=== PATIENT | female | born 1950 | race Caucasian/White ===

== ENCOUNTER 2017-07-21 13:26 | Inpatient (IN) | payer MEDICARE, OTHER ==
[~2017-07-21] VITALS: Ht 165.1 cm; Wt 82.6 kg
[2017-07-21] MEDS ORDERED: LAMO200T PO (13:37)
[2017-07-21] MEDS ORDERED: ARIP30TA3 PO (13:37)
[2017-07-21] MEDS ORDERED: CARB200T PO (13:37)
--- NOTE | 2017-07-21 13:43 | NUR ---
hands off report given to amish velazco
[2017-07-21 14:49] LABS: *BILIRUBIN,URIN NEGATIVE (NEGATIVE); *BLOOD, URINE NEGATIVE (NEGATIVE); *CLARITY,URINE CLEAR (CLEAR); *COLOR,URINE YELLOW (YELLOW); *KETONES,URINE TRACE (NEGATIVE); *PROTEIN,URINE NEGATIVE (NEGATIVE); *UROBILINOGEN,URINE 0.2 E.U./dl (NORMAL); LEUKOCYTE ESTERASE ,URINE NEGATIVE (NEGATIVE); NITRITE, URINE NEGATIVE (NEGATIVE); PH,URINE 6.5 (5.0-8.0); UGLUCOSE NEGATIVE (NEGATIVE)
[2017-07-21 14:51] LABS: BACTERIA,URINE FEW /HPF (NONE SEEN); RBC,URINE 0-3 /HPF (0-3); SQUAMOUS EPITHELIAL CELL,UR FEW /HPF (NONE SEEN); WBC,URINE 0-3 /HPF (0-3)
--- NOTE | 2017-07-21 15:00 | NUR ---
trnasfered pt to [facility]hu in stable condition. pt remained calm and cooperative the whole er stay.
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
[2017-07-21 15:26] VITALS: BP 149/81
--- NOTE | 2017-07-21 17:34 | NUR ---
Paged Dr. Burnett c/o Soy from [employer] answering service regarding pt's Lamictal and Tegretol orders. Awaiting call back.
--- NOTE | 2017-07-21 17:42 | NUR ---
Rec'd call back from IFEOMA Grady and relayed that pt's Lamictal and Tegretol is for her mood disorder. New order to D/C, read back. Noted and carried out. Confirmed with pharmacy.
[2017-07-21] MEDS ORDERED: MAGNESIUM HYDROXIDE 30 ML LIQUID UDC PO PRN (18:00)
[2017-07-21 20:34] VITALS: BP 121/69
[2017-07-22] MEDS: ZOLPIDEM 5 MG TABLET PO PRN (01:22)
[2017-07-22 07:30] VITALS: BP 112/68
[2017-07-22 08:13] LABS: BASOPHILS % (AUTO) 0.6 % (0.0-2.0); EOSINOPHILS # (AUTO) 0.1 K/uL (0.0-0.7); EOSINOPHILS % (AUTO) 2.2 % (0.0-7.0); HEMATOCRIT 38.3 % (31.2-41.9); LYMPHOCYTES # (AUTO) 1.8 K/uL (20.0-40.0); LYMPHOCYTES % (AUTO) 35.7 % (20.5-51.5); MEAN CORPUSCULAR HEMOGLOBIN 32.6 uug (24.7-32.8); MEAN CORPUSCULAR HGB CONC 34 g/dL (32.3-35.6); MEAN CORPUSCULAR VOLUME 95.5 fL (75.5-95.3); MONOCYTES # (AUTO) 0.5 K/uL (2.0-10.0); MONOCYTES % (AUTO) 10.8 % (0.0-11.0); NEUTROPHILS # (AUTO) 2.6 K/uL (1.8-8.9); NEUTROPHILS % (AUTO) 50.7 % (38.5-71.5); PLATELET COUNT (AUTO) 187 K/uL (179-408); RED BLOOD CELL COUNT(AUTO) 4.01 MIL/uL (3.63-4.92); WHITE BLOOD COUNT (AUTO) 5.1 K/uL (3.8-11.8)
[2017-07-22 08:35] LABS: THYROID STIMULATING HORMONE 5.033 mIU/mL (0.358-3.740)
[2017-07-22 08:57] LABS: BILIRUBIN,TOTAL 0.5 mg/dL (0.2-1.0); MAGNESIUM 2.3 mg/dL (1.8-2.4); PHOSPHOROUS 3.9 mg/dL (2.5-4.9); TOTAL PROTEIN, SERUM 7.8 g/dL (6.4-8.2)
[2017-07-22] MEDS ORDERED: LAMOTRIGINE 200 MG TABLET PO SCH (09:00)
[2017-07-22] MEDS ORDERED: CARBAMAZEPINE 200 MG TABLET PO SCH (09:00)
[2017-07-22] MEDS: CARBAMAZEPINE 200 MG TABLET PO SCH ×2 (09:46→21:35)
[2017-07-22] MEDS: OLANZAPINE ZYDIS 5 MG TAB.RAPDIS PO SCH ×2 (09:46→17:00)
[2017-07-22] MEDS: OMEGA-3 FATTY ACIDS/FISH OIL CAPSULE PO SCH ×2 (12:51→21:34)
[2017-07-22 15:51] VITALS: BP 110/68
[2017-07-22 20:00] VITALS: BP 137/71
[2017-07-22] MEDS: ATORVASTATIN 20 MG TABLET PO SCH (21:34)
--- NOTE | 2017-07-22 22:00 | NUR ---
RECEIVED Pt IN DAY ROOM, A/O X 2, COOPERATIVE WITH ASSESSMENT, COMPLIANT WITH MEDS, Pt HAS DELUSIONS PRESENT, ABLE TO ANSWER BASIC QUESTIONS AND OBEY COMMANDS. Pt IS UNABLE TO HOLD CONVERSATION TOO LONG, HAS DISORGANIZED THOUGHTS AND SPEECH, NO AGGRESSIVE BEHAVIORS NOTED, DENIES PAIN, NO DISTRESS NOTED, DENIES S/I. WILL CONTINUE TO MONITOR Pt CLOSELY. EMPHASIZED SAFETY, BED AT LOWEST POSITION WITH WHEEL LOCKED, SIDE RAILS UP X 2.
[2017-07-23] MEDS: ZOLPIDEM 5 MG TABLET PO PRN (01:06)
--- NOTE | 2017-07-23 01:10 | NUR ---
Pt WOKE UP AND CAME TO NURSE'S STATION COMPLAINING THAT SHE CAN'T SLEEP, REQUESTING FOR SLEEPING PILL. GIVEN AMBIEN PO PRN FOR SLEEP. WILL MONITOR FOR MED EFFECTIVENESS.
[2017-07-23 07:30] VITALS: BP 115/64
[2017-07-23] MEDS: CARBAMAZEPINE 200 MG TABLET PO SCH ×2 (09:00→20:47)
[2017-07-23] MEDS: OMEGA-3 FATTY ACIDS/FISH OIL CAPSULE PO SCH ×2 (09:45→20:47)
[2017-07-23] MEDS: risperiDONE 0.5 MG TABLET PO SCH ×2 (09:46→20:47)
--- NOTE | 2017-07-23 10:37 | NUR ---
Firearms Report: BERTHA submitted Mental Health Report to [facility] on 07/23.
--- NOTE | 2017-07-23 13:45 | NUR ---
GPS: Nursing Notes: Thought Disorder: Patient is awake and responding to her name, impaired judgment, refusing her Tegretol medication, stated "I am not taking this... I told the doctor... It mades me crazy..", throw the pill to the floor, poor impulse control, hyper-caodaism, believes that she is the savior of the patients, loud and angry affect at times, hyperverbal at times, redirected during shift, unable to formulate a viable plan for self care, continue with treatment plan.
--- NOTE | 2017-07-23 15:58 | NUR ---
Initial DC Plan: Patient currently lives at home with her Anthony [[address] [facility].[place] [address]; [phone]]. Patient stated she would like to return there upon discharge. SW will follow up with MD, patient, and patient's to discuss most appropriate discharge plans. SW will form a safe and proper discharge.
[2017-07-23 17:23] VITALS: BP 105/77
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
[2017-07-23 20:11] VITALS: BP 133/79
[2017-07-23] MEDS: ATORVASTATIN 20 MG TABLET PO SCH (20:47)
[2017-07-24] MEDS: ZOLPIDEM 5 MG TABLET PO PRN ×2 (01:23→22:23)
--- NOTE | 2017-07-24 07:00 | NUR ---
Received patient was ambulating in the hallway. no agitation noted. will monitor.
[2017-07-24 07:30] VITALS: BP 140/57
[2017-07-24] MEDS: OMEGA-3 FATTY ACIDS/FISH OIL CAPSULE PO SCH ×2 (09:29→21:39)
[2017-07-24] MEDS: CARBAMAZEPINE 200 MG TABLET PO SCH ×2 (09:29→21:39)
[2017-07-24] MEDS: risperiDONE 0.5 MG TABLET PO SCH ×2 (09:29→21:39)
[2017-07-24 15:58] VITALS: BP 108/64
--- NOTE | 2017-07-24 18:00 | NUR ---
Patient went for CT scan. result is negative. patient with slight agitation but compliant. will monitor.
--- NOTE | 2017-07-24 20:24 | NUR ---
PATIENT IS SEATED IN WHEEL CHAIR BY THE NURSE'S STATION, AAOX2 PLEASANTLY CONFUSED. VERY NEEDY AND HYPER VERBAL. COMPLIANT WITH CARE. NO C/O PAIN OR ACUTE DISTRESS ON ASSESSMENT. WILL CONTINUE TO MONITOR PATIENT
[2017-07-24 20:57] VITALS: BP 131/65
[2017-07-24] MEDS: ATORVASTATIN 20 MG TABLET PO SCH (21:39)
[2017-07-24] MEDS ORDERED: LORAZEPAM 2 MG/1 ML VIAL IM ONE (22:15)
[2017-07-24] MEDS ORDERED: OLANZAPINE 10 MG VIAL IM ONE (22:15)
--- NOTE | 2017-07-24 22:15 | NUR ---
PATIENT IS NOTED DEMANDING. SHE REQUESTED A BUCKET OF HOT WATER FOR HER FOOT, MULTIPLE REDIRECTION GIVEN, YET INEFFECTIVE, NEXT, SHE REQUESTED TO GO IN THE SHOWER TO LET THE HOT WATER RUNNING, MULTIPLE REDIRECTION GIVEN, YET INEFFECTIVE, PATIENT RAN TO THE MAIN DOOR AND STARTED BANGING THE DOOR WITH HER HANDS. PATIENT, THEN WAS ESCORTED BACK TO HER ROOM. MULTIPLE REDIRECTION GIVEN AND WERE EFFECTIVE, PATIENT WAS ABLE TO CALM DOWN. SHE AGREED TO ELEVATE HER FOOT AND STAY IN HER BED. WILL CONTINUE TO MONITOR CLOSELY.
--- NOTE | 2017-07-24 22:25 | NUR ---
PATIENT APPROACHED THE NURSING STATION AND REQUESTED A "SLEEPING PILL". AMBIEN 5MG PO PRN WAS GIVEN FOR INSOMNIA PER PT REQUEST AND NURSE ASSESSMENT.
--- NOTE | 2017-07-25 00:05 | NUR ---
PATIENT NOTED RESTING COMFORTABLE IN HER BED. NO FURTHER DEMANDING, YELLING EPISODES NOTED OR REPORTED AT THIS TIME. WILL CONTINUE TO MONITOR CLOSELY.
--- NOTE | 2017-07-25 03:48 | NUR ---
PATIENT NOTED AWAKE, WALKING THE HALLWAY AND TALKING TO STAFF; HOWEVER, SHE IS CALM. PLEASANT AND COOPERATIVE AT THIS TIME.
--- NOTE | 2017-07-25 06:31 | NUR ---
Patient is awake wandering in the hallways. Slept on and off through the night. Slept 2.5 on this shift. Patient very needy and easily agitated, able to redirect patient. Patient able to follow simple directions, but easily distracted
--- NOTE | 2017-07-25 08:00 | NUR ---
RECEIVED PATIENT IN HER ROOM IN BED ASLEEP BUT EASILY AROUSABLE. SHE IS ABLE TO AMBULATE WITH THE AID OF A FWW WITH ASSISTANCE. SHE IS ABLE TO COMPLY WITH MEDICATION REGIMENT AT THIS TIME. SAFETY IS EMPHASIS. WILL CONTINUE TO MONITOR.
[2017-07-25 08:16] VITALS: BP 130/79
[2017-07-25] MEDS: CARBAMAZEPINE 200 MG TABLET PO SCH ×2 (08:41→20:25)
[2017-07-25] MEDS: risperiDONE 0.5 MG TABLET PO SCH (08:41)
[2017-07-25] MEDS: OMEGA-3 FATTY ACIDS/FISH OIL CAPSULE PO SCH ×2 (08:41→20:24)
[2017-07-25] MEDS: NEOMY/BACITRAC/POLYMI OINT 28.35 GM TUBE TOP SCH (08:42)
--- NOTE | 2017-07-25 17:58 | NUR ---
BLOOD SUGAR CHARTED ON THE WRONG PT. PT HAS NO SIGNS OF HYPER OR HYPO GLYCEMIA. PT IS NOT DIABETIC.
--- NOTE | 2017-07-25 19:45 | NUR ---
RECEIVED PATIENT IN HER ROOM. SHE IS NOTED A/O X 3. SHE IS ABLE TO AMBULATE WITH STEADY GAIT AND ABLE TO MAKE HER NEEDS KNOWN. SHE IS NOTED WITH FLIGHT OF IDEAS, NEEDY, LABILE BX. LOW MOOD. FAIR INSIGHT AND JUDGMENT. DENIES SI, DENIES AH/VH. SAFETY EMPHASIS. WILL CONTINUE TO MONITOR.
[2017-07-25] MEDS: ATORVASTATIN 20 MG TABLET PO SCH (20:24)
[2017-07-25] MEDS: risperiDONE 1 MG TABLET PO SCH (20:25)
[2017-07-25] MEDS ORDERED: risperiDONE 0.5 MG TABLET PO SCH (21:00)
[2017-07-25 21:39] VITALS: BP 117/65
[2017-07-25] MEDS: ZOLPIDEM 5 MG TABLET PO PRN (22:43)
--- NOTE | 2017-07-25 22:46 | NUR ---
PATIENT APPROACHED THE NURSING STATION AND REQUESTED A "SLEEPING PILL". AMBIEN 5MG PO PRN WAS GIVEN FOR INSOMNIA PER PT REQUEST AND NURSE ASSESSMENT.
--- NOTE | 2017-07-25 23:55 | NUR ---
PATIENT NOTED SLEEPING COMFORTABLE IN HER BED. WILL CONTINUE TO MONITOR.
--- NOTE | 2017-07-26 04:20 | NUR ---
PATIENT NOTED AWAKE, WALKING THE HALLWAY AND TALKING TO NURSING STAFF. SHE IS NOTED CALM. CONTINUE WITH FLIGHT OF IDEAS, INCONGRUENT MOOD, BRIGHT AFFECT. SINGING TALKING AND LAUGHING AT TIMES.
[2017-07-26 07:30] VITALS: BP 120/52
[2017-07-26] MEDS: NEOMY/BACITRAC/POLYMI OINT 28.35 GM TUBE TOP SCH (08:18)
[2017-07-26] MEDS: CARBAMAZEPINE 200 MG TABLET PO SCH ×2 (08:19→20:20)
[2017-07-26] MEDS: OMEGA-3 FATTY ACIDS/FISH OIL CAPSULE PO SCH ×2 (08:19→20:20)
[2017-07-26] MEDS: risperiDONE 1 MG TABLET PO SCH ×2 (08:19→20:20)
--- NOTE | 2017-07-26 08:35 | NUR ---
WOUND CONSULT WOUND CARE RECEIVED CONSULT FOR LEFT LOWER EXTREMITY SKIN ABRASION. WOUND CARE WILL DEFER CONSULT AND TREATMENT PLAN TO DPM WHO IS CURRENTLY FOLLOWING PATIENT. THERE ARE NOTED TREATMENT ORDERS IN PLACE. PATIENT WITH ALIVIA AT 22.
[2017-07-26 16:33] VITALS: BP 122/51
[2017-07-26] MEDS: ATORVASTATIN 20 MG TABLET PO SCH (20:20)
[2017-07-26 21:16] VITALS: BP 121/61
[2017-07-26] MEDS: ZOLPIDEM 5 MG TABLET PO PRN (23:02)
--- NOTE | 2017-07-27 06:56 | NUR ---
GPS: REMAIN CALM AND COOPERATIVE WITH MEDICATIONS AND CARE. SLEPT 7 HRS THROUGH THE NIGHT. AMBULATE WITH STEADY GAIT. NO AGITATION NOTED AT THIS TIME.
[2017-07-27 07:30] VITALS: BP 111/62
[2017-07-27] MEDS: CARBAMAZEPINE 200 MG TABLET PO SCH ×2 (08:43→20:25)
[2017-07-27] MEDS: risperiDONE 1 MG TABLET PO SCH ×2 (08:43→20:25)
[2017-07-27] MEDS: OMEGA-3 FATTY ACIDS/FISH OIL CAPSULE PO SCH ×2 (08:43→20:25)
[2017-07-27] MEDS: NEOMY/BACITRAC/POLYMI OINT 28.35 GM TUBE TOP SCH (08:44)
[2017-07-27 17:07] VITALS: BP 163/93
[2017-07-27 20:00] VITALS: BP 126/83
[2017-07-27] MEDS: ATORVASTATIN 20 MG TABLET PO SCH (20:25)
[2017-07-27] MEDS: ZOLPIDEM 5 MG TABLET PO PRN (23:38)
--- NOTE | 2017-07-27 23:39 | NUR ---
GPS: PATIENT C/O INSOMNIA. AMBIEN 5 MG PO GIVEN.
--- NOTE | 2017-07-28 00:39 | NUR ---
GPS: PATIENT SLEEPING EYE CLOSE. PRN EFFECTIVE FOR SLEEP.
--- NOTE | 2017-07-28 06:44 | NUR ---
REMAIN CALM AND COOPERATIVE SLEPT 4:30 HRS THROUGH THE NIGHT. CONTINUE PLAN OF CARE.
[2017-07-28 07:30] VITALS: BP 128/76
[2017-07-28] MEDS: CARBAMAZEPINE 200 MG TABLET PO SCH ×2 (09:07→21:34)
[2017-07-28] MEDS: OMEGA-3 FATTY ACIDS/FISH OIL CAPSULE PO SCH ×2 (09:07→21:12)
[2017-07-28] MEDS: risperiDONE 1 MG TABLET PO SCH ×2 (09:07→21:12)
[2017-07-28] MEDS: NEOMY/BACITRAC/POLYMI OINT 28.35 GM TUBE TOP SCH (09:08)
[2017-07-28 15:31] VITALS: BP 116/55
[2017-07-28 20:18] VITALS: BP 139/74
[2017-07-28] MEDS: ATORVASTATIN 20 MG TABLET PO SCH (21:12)
[2017-07-28] MEDS: ZOLPIDEM 5 MG TABLET PO PRN (23:26)
--- NOTE | 2017-07-28 23:51 | NUR ---
RECEIVED PATIENT IN HER ROOM. SHE IS NOTED A/O X 3. SHE IS ABLE TO AMBULATE WITH STEADY GAIT AND ABLE TO MAKE HER NEEDS KNOWN. SHE IS NOTED WITH FLIGHT OF IDEAS, NEEDY, HYPERVERBAL, HYPER MUSLIM, LABILE BX. FAIR INSIGHT AND JUDGMENT TO THE REASON FOR HER ADMISSION TO [facility]. DENIES SI, DENIES AH/VH. SAFETY EMPHASIS. WILL CONTINUE TO MONITOR
--- NOTE | 2017-07-29 06:46 | NUR ---
PATIENT SLEPT FOR APPROX 5.30HRS THROUGH THE NIGHT. SHE CONTINUE NEEDY, HYPERVERBAL AND HYPERRELIGIOUS; HOWEVER, SHE IS REDIRECTABLE AT THIS TIME.
[2017-07-29 07:30] VITALS: BP 123/57
[2017-07-29] MEDS: OMEGA-3 FATTY ACIDS/FISH OIL CAPSULE PO SCH ×2 (08:26→20:51)
[2017-07-29] MEDS: risperiDONE 1 MG TABLET PO SCH ×2 (08:26→20:53)
[2017-07-29] MEDS: CARBAMAZEPINE 200 MG TABLET PO SCH ×2 (08:26→20:53)
[2017-07-29] MEDS: NEOMY/BACITRAC/POLYMI OINT 28.35 GM TUBE TOP SCH (08:27)
[2017-07-29 20:17] VITALS: BP 112/69
[2017-07-29] MEDS: ATORVASTATIN 20 MG TABLET PO SCH (20:51)
[2017-07-29] MEDS: ZOLPIDEM 5 MG TABLET PO PRN (22:51)
[2017-07-30] MEDS ORDERED: MAG HYDROX/AL HYDROX/SIMETH 30 ML LIQUID UDC PO PRN (07:15)
[2017-07-30 07:30] VITALS: BP 108/65
[2017-07-30] MEDS: OMEGA-3 FATTY ACIDS/FISH OIL CAPSULE PO SCH ×2 (08:30→20:12)
[2017-07-30] MEDS: NEOMY/BACITRAC/POLYMI OINT 28.35 GM TUBE TOP SCH (08:30)
[2017-07-30] MEDS: CARBAMAZEPINE 200 MG TABLET PO SCH ×2 (08:30→20:11)
[2017-07-30] MEDS: risperiDONE 1 MG TABLET PO SCH ×2 (08:30→20:11)
[2017-07-30 15:17] VITALS: BP 144/67
[2017-07-30] MEDS: diphenhydrAMINE 50 MG CAPSULE PO SCH (20:11)
[2017-07-30] MEDS: ATORVASTATIN 20 MG TABLET PO SCH (20:12)
[2017-07-30 20:38] VITALS: BP 108/63
[2017-07-30] MEDS: ACETAMINOPHEN 325 MG TABLET PO PRN (21:20)
[2017-07-31] MEDS: ACETAMINOPHEN 325 MG TABLET PO PRN ×2 (04:57→21:52)
--- NOTE | 2017-07-31 06:53 | NUR ---
RECEIVED Pt IN THE DAY ROOM INTERACTING WITH PEERS. A+Ox2 TO SELF AND PLACE. Pt HAS POOR INSIGHT INTO REASON FOR ADMISSION AND IS IN DENIAL ABOUT MENTAL CONDITION, REMAINS DISORGANIZED AND CONFUSED. Pt STATES SHE IS HERE "BECAUSE THE SPIRITS ARE AFTER ME." Pt IS DELUSIONAL, HYPER-SABIANISM, CARRIES A BIBLE WITH HER AT ALL TIMES AROUND THE UNIT AND PREACHES. Pt IS INTERNALLY PREOCCUPIED, RESPONDS TO INTERNAL STIMULI, TALKS AND SINGS TO HERSELF. Pt NOTED TO HAVE UNPROVOKED EPISODES OF CRYING. Pt IS INTRUSIVE, NEEDY, AND ATTENTION-SEEKING, CONSTANTLY AT THE NURSE'S STATION ASKING FOR SNACKS, TOWELS, PAPER, PENCILS, CUPS AND VARIOUS OTHER ITEMS, BECOMES AGITATED WHENLIMITS ARE SET. Pt ALSO WANDERS INTO THE EMPLOYEE BREAK ROOM FREQUENTLY DESPITE DIRECTION FROM STAFF TO REMAIN IN THE PATIENT AREAS. Pt PARANOID OF MEDICATIONS AND REQUESTS ALL MEDICATIONS BE EXPLAINED AND SHOWED TO HER IN THE WRAPPER BEFORE SHE WILL TAKE THEM. Pt IS SOMATIC AND COMPLAINS THE HER "WHOLE BODY HURTS", TYLENOL 650mg ADMINISTERED x2 WITH GOOD EFFECT. Pt REDIRECTED FREQUENTLY AND MONITORED Q 30 MINUTES. VS STABLE. IN NO ACUTE DISTRESS. SLEPT 4 HOURS.
[2017-07-31] MEDS: LORAZEPAM 1 MG TABLET PO PRN (08:01)
[2017-07-31] MEDS: risperiDONE 1 MG TABLET PO SCH (08:01)
[2017-07-31] MEDS: OMEGA-3 FATTY ACIDS/FISH OIL CAPSULE PO SCH ×2 (08:01→20:42)
[2017-07-31] MEDS: CARBAMAZEPINE 200 MG TABLET PO SCH ×2 (08:01→20:42)
[2017-07-31] MEDS: NEOMY/BACITRAC/POLYMI OINT 28.35 GM TUBE TOP SCH (08:06)
[2017-07-31] MEDS ORDERED: HALOPERIDOL LACTATE 5 MG/1 ML VIAL IM ONE (08:15)
[2017-07-31] MEDS ORDERED: diphenhydrAMINE 50 MG/1 ML VIAL IM ONE (08:15)
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
[2017-07-31 08:30] VITALS: BP 123/72
[2017-07-31 16:31] VITALS: BP 123/69
[2017-07-31] MEDS: diphenhydrAMINE 25 MG CAP PO SCH ×2 (17:00→17:35)
[2017-07-31] MEDS: HALOPERIDOL LACTATE 10 MG/5 ML ORAL SOLUTION UDC PO SCH ×2 (17:00→17:36)
[2017-07-31 20:41] VITALS: BP 126/71
[2017-07-31 20:42] VITALS: BP 126/71
[2017-07-31] MEDS: diphenhydrAMINE 50 MG CAPSULE PO SCH (20:42)
[2017-07-31] MEDS: ATORVASTATIN 20 MG TABLET PO SCH (20:42)
[2017-07-31] MEDS: ZOLPIDEM 5 MG TABLET PO PRN (22:41)
--- NOTE | 2017-08-01 00:04 | NUR ---
RECEIVED Pt IN DAY ROOM, A/O X 2, Pt IS DISORGANIZED AND CONFUSED, POOR INSIGHT, PRESENTS DELUSIONS STATING, "TONIGHT WE ARE GOING TO BREAK DOWN THE [place] OF [place]. YOU WILL BE BLESSED BY GOD." Pt IS NEEDY AND CONSTANTLY ASKING FOR ITEMS FROM NURSING STAFF. Pt WAS GIVEN AMBIEN 5MG PO PRN FOR INSOMNIA. Pt COMPLAINED OF 6/10 BACK PAIN, WAS GIVEN TYLENOL 650 MG PO PRN. MEDS WERE EFFECTIVE. Pt IS NOW SLEEPING. DENIES S/I AND AGREES TO CFS. DENIES PAIN, NO DISTRESS NOTED, IN STABLE CONDITION.
[2017-08-01] MEDS: LORAZEPAM 1 MG TABLET PO PRN (03:05)
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
[2017-08-01 08:00] VITALS: BP 93/49
[2017-08-01] MEDS: OMEGA-3 FATTY ACIDS/FISH OIL CAPSULE PO SCH ×2 (08:14→20:43)
[2017-08-01] MEDS: diphenhydrAMINE 25 MG CAP PO SCH ×2 (08:14→16:10)
[2017-08-01] MEDS: HALOPERIDOL LACTATE 10 MG/5 ML ORAL SOLUTION UDC PO SCH ×3 (08:15→16:10)
[2017-08-01] MEDS: CARBAMAZEPINE 200 MG TABLET PO SCH ×2 (08:15→20:43)
[2017-08-01] MEDS: NEOMY/BACITRAC/POLYMI OINT 28.35 GM TUBE TOP SCH (08:54)
--- NOTE | 2017-08-01 09:19 | NUR ---
Took patient in the bathroom with mild weakness. Helped patient from bathroom to bed. Ate her breakfast and took all her medications. Patient is compliant on all her ADL's. Shower today. 3rd toe abrasion treatment provided as per ordered. Will monitor.
--- NOTE | 2017-08-01 14:30 | NUR ---
Pt seen by Dr. Teague for psychotherapy eval.
[2017-08-01 16:00] VITALS: BP 97/61
--- NOTE | 2017-08-01 16:33 | NUR ---
Patient is compliant with all medications and staff care. No signs of agitation or intruding with other patients. Able to express needs. Wanted to talk to MD regarding going home. Will monitor.
[2017-08-01] MEDS: ATORVASTATIN 20 MG TABLET PO SCH (20:43)
[2017-08-01] MEDS: diphenhydrAMINE 50 MG CAPSULE PO SCH (20:43)
[2017-08-01 21:00] VITALS: BP 126/75
[2017-08-01] MEDS: ZOLPIDEM 5 MG TABLET PO PRN (23:34)
[2017-08-01] MEDS: ACETAMINOPHEN 325 MG TABLET PO PRN (23:35)
--- NOTE | 2017-08-01 23:46 | NUR ---
RECEIVED Pt IN DAY ROOM, A/O X 2, Pt IS DISORGANIZED AND CONFUSED, POOR INSIGHT, LESS INTRUSIVE THAN THE PREVIOUS NIGHT, NO AGGRESSIVE BEHAVIORS NOTED. Pt IS STILL NEEDY, CONTINUOUSLY ASKING NURSING STAFF FOR HELP WITH SIMPLE ACTIVITIES. Pt GAIT WAS NOTED TO BE UNSTEADY AND WAS ASSISTED BY NURSE TO BATHROOM AND THEN TO BED. Pt INITIALLY REFUSED TO GO TO BED SAYING SHE HAS TROUBLE SLEEPING. SHE ALSO COMPLAINED OF PAIN WHICH IS MAKING IT HARDER FOR HER TO WALK AND PERFORM ACTIVITIES. Pt WAS GIVEN AMBIEN 5MG PO PRN FOR SLEEP, ALSO GIVEN TYLENOL 650 MG PO PRN FOR PAIN. Pt IS NOW RESTING IN BED, WILL MONITOR CLOSELY FOR BEHAVIORAL CHANGES, SAFETY, AND MEDICATION EFFECTIVENESS.
[2017-08-02] MEDS: LORAZEPAM 1 MG TABLET PO PRN (02:26)
--- NOTE | 2017-08-02 06:59 | NUR ---
Pt IS STILL SLEEPING. NO DISTRESS NOTED. NO ANXIETY NOTED, NO AGGRESSION NOTED. IN STABLE CONDITION.
[2017-08-02 07:30] VITALS: BP 96/43
[2017-08-02] MEDS: OMEGA-3 FATTY ACIDS/FISH OIL CAPSULE PO SCH ×2 (08:35→20:37)
[2017-08-02] MEDS: CARBAMAZEPINE 200 MG TABLET PO SCH ×2 (08:35→20:37)
[2017-08-02] MEDS: NEOMY/BACITRAC/POLYMI OINT 28.35 GM TUBE TOP SCH (08:36)
[2017-08-02] MEDS: HALOPERIDOL LACTATE 10 MG/5 ML ORAL SOLUTION UDC PO SCH ×2 (09:05→20:40)
[2017-08-02] MEDS: diphenhydrAMINE 25 MG CAP PO SCH (09:08)
[2017-08-02 16:23] VITALS: BP 111/51
--- NOTE | 2017-08-02 20:00 | NUR ---
RECEIVED PATIENT IN THE DAY ROOM, SHE IS NOTED A/O X 2. SHE IS ABLE TO MAKE HER NEEDS KNOWN AND ABLE TO AMBULATE WITH STEADY GAIT. SHE CONTINUE INTRUSIVE, HYPERVERBAL, HYPERRELIGIOUS, WONDERING INTO OTHER PATIENT'S ROOM AND CONVERSATIONS. POOR INSIGHT AND POOR JUDGMENT NOTED. LABILE MOOD, FLIGHT OF IDEAS. DENIES SI/TARI/AH/VH. MEDICATION COMPLIANT AT THIS TIME. SAFETY IS EMPHASIS. WILL CONTINUE TO MONITOR CLOSELY.
[2017-08-02 20:26] VITALS: BP 115/72
[2017-08-02] MEDS: ATORVASTATIN 20 MG TABLET PO SCH (20:37)
[2017-08-02] MEDS: diphenhydrAMINE 50 MG CAPSULE PO SCH (20:37)
--- NOTE | 2017-08-03 | NUR ---
PT NOTED WONDERING IN THE HALLWAY AND ENTERING OTHER PATIENT'S ROOM. MULTIPLE REDIRECTION GIVEN, EFFECTIVE AT THIS TIME. AMBIEN 5MG PO PRN WAS OFFERED; HOWEVER, PT REFUSED AT THIS TIME. WILL CONTINUE TO MONITOR.
--- NOTE | 2017-08-03 04:58 | NUR ---
Pt. noted awake and standing by the nursing station. She stated, "Can I sing for you." Pt was redirected back to her room. Continue needy, attention seeker and intrusive. will continue to monitor.
--- NOTE | 2017-08-03 07:29 | NUR ---
PT SLEPT FOR APPROX 4.0 HRS THROUGH THE NIGHT. REFUSED AMBIEN 5MG PO PRN LAST NIGHT.
[2017-08-03 07:30] VITALS: BP 119/63
[2017-08-03] MEDS: CARBAMAZEPINE 200 MG TABLET PO SCH ×2 (08:04→20:12)
[2017-08-03] MEDS: diphenhydrAMINE 25 MG CAP PO SCH (08:04)
[2017-08-03] MEDS: OMEGA-3 FATTY ACIDS/FISH OIL CAPSULE PO SCH ×2 (08:04→20:12)
[2017-08-03] MEDS: HALOPERIDOL LACTATE 10 MG/5 ML ORAL SOLUTION UDC PO SCH ×2 (08:04→20:11)
[2017-08-03] MEDS: NEOMY/BACITRAC/POLYMI OINT 28.35 GM TUBE TOP SCH (08:05)
--- NOTE | 2017-08-03 15:07 | NUR ---
Gps/Color Blender- Patient demanding to have her clothes be wash right away , claimed she does not want to wear hospital gown after he shower, informed will give back her clothes when washed.
--- NOTE | 2017-08-03 15:30 | NUR ---
Gps/Pool Table Mechanic- Difficulty redirecting patient, kept hovering at the Nurses station , demanding to have the portable phone, informed she can use the phone by the hallway, refused, wants to used the portable being charged at this time, argumentative with the staff, uncooperative.Continue to monitor behavior.
[2017-08-03] MEDS: LORAZEPAM 1 MG TABLET PO PRN (15:55)
[2017-08-03 16:11] VITALS: BP 124/71
--- NOTE | 2017-08-03 20:00 | NUR ---
RECEIVED PATIENT IN HER ROOM, SHE WAS TALKING WITH HER IN THE PHONE. SHE IS NOTED A/O X2 (PERSON AND PLACE). PT NOTED WITH LOW MOOD, LABILE, HYPERVERBAL, FLIGHT OF IDEAS, HYPERRELIGIOUS, NEEDY AND ATTENTION SEEKER. SOMEWHAT REDIRECTABLE. FAIR INSIGHT AND JUDGMENT TO THE REASON FOR HER ADMISSION. SHE DENIES SI/HI/VH/AV. SHE IS ABLE TO CFS. SHE IS ABLE TO COMPLY WITH MEDICATION REGIMENT AN PLAN OF CARE.
[2017-08-03] MEDS: ATORVASTATIN 20 MG TABLET PO SCH (20:11)
[2017-08-03] MEDS: diphenhydrAMINE 50 MG CAPSULE PO SCH (20:12)
[2017-08-03 20:34] VITALS: BP 133/59
--- NOTE | 2017-08-03 20:54 | NUR ---
PATIENT ABLE TO AMBULATE WITH STEADY GAIT AND ABLE TO MAKE HER NEEDS KNOWN. SAFETY WAS EMPHASIS.
--- NOTE | 2017-08-04 02:10 | NUR ---
PATIENT WOKE UP AND CAME TO THE NURSING STATION REQUESTING A "SLEEPING PILL." SHE WAS ADVISED THAT IT WAS TOO LATE FOR A SLEEPING PILL. SHE THEN BECAME ANGRY AND KICKED AN EMPTY SARAH CHAIR THAT WAS PLACED IN THE HALLWAY. MULTIPLE REDIRECTION GIVEN; SHE THEN, WENT BACK TO HER BED AND FALL ASLEEP. WILL CONTINUE TO MONITOR
--- NOTE | 2017-08-04 06:21 | NUR ---
PATIENT SLEEP FOR APPROX 7.30HRS THROUGH THE NIGHT. CONTINUE EASILY IRRITABLE AND DIFFICULTY TO BE REDIRECTED.
[2017-08-04 07:30] VITALS: BP 132/72
[2017-08-04] MEDS: OMEGA-3 FATTY ACIDS/FISH OIL CAPSULE PO SCH ×2 (08:25→21:01)
[2017-08-04] MEDS: diphenhydrAMINE 25 MG CAP PO SCH (08:25)
[2017-08-04] MEDS: HALOPERIDOL LACTATE 10 MG/5 ML ORAL SOLUTION UDC PO SCH ×2 (08:25→21:00)
[2017-08-04] MEDS: CARBAMAZEPINE 200 MG TABLET PO SCH ×2 (08:25→21:01)
[2017-08-04] MEDS: NEOMY/BACITRAC/POLYMI OINT 28.35 GM TUBE TOP SCH (08:26)
--- NOTE | 2017-08-04 14:44 | NUR ---
Gps/Director Pharmacy Services- Attending her group therapy, interacting fairly well with her peers, patient was singing , appeared to be in good spirit.
[2017-08-04 15:50] VITALS: BP 113/57
--- NOTE | 2017-08-04 19:50 | NUR ---
RECEIVED PATIENT IN THE DAY ROOM. SHE IS NOTED A/O X2 (PERSON AND PLACE). SHE IS ABLE TO AMBULATED WITH STEADY GAIT AND ABLE TO MAKE HER NEEDS KNOWN. NOTED WITH LABILE MOOD, HYPERVERBAL, FLIGHT OF IDEAS, HYPERRELIGIOUS, INTRUSIVE, NEEDY AND ATTENTION SEEKER. DIFFICULT TO BE REDIRECTED. FAIR INSIGHT AND JUDGMENT NOTED TO THE REASON FOR HER ADMISSION. SHE DENIES SI/HI/VH/AV. SHE IS ABLE TO CFS. ABLE TO COMPLY WITH MEDICATION REGIMENT DIET AN PLAN OF CARE AT THIS TIME. SAFETY WAS EMPHASIS.
[2017-08-04 20:16] VITALS: BP 117/54
[2017-08-04] MEDS: ATORVASTATIN 20 MG TABLET PO SCH (21:01)
[2017-08-04] MEDS: diphenhydrAMINE 50 MG CAPSULE PO SCH (21:01)
[2017-08-04] MEDS: ZOLPIDEM 5 MG TABLET PO PRN (23:48)
--- NOTE | 2017-08-04 23:50 | NUR ---
PATIENT NOTED PACING THE MARCELLA ORTEZ. ATIVAN 0.5MG PO PRN WAS OFFERED FOR INSOMNIA AND PATIENT ACCEPTED. SHE WAS REDIRECTED TO STAY IN BED. WILL CONTINUE TO MONITOR. Addendum: 08/05/17 at 0752 by NICOLASA COX RN AMBIEN 5MG PO PRN WAS GIVEN FOR INSOMNIA.
--- NOTE | 2017-08-05 04:00 | NUR ---
PATIENT WOKE UP AND CAME TO THE NURSING STATION DEMANDING TO USED ANOTHER RESTROOM, WHEN REDIRECTED SHE BECOME ANGRY AND THROW PAPER NAPKINS INTO THE FLOOR. ATIVAN 1MG PO PRN WAS GIVEN FOR AGITATION. WILL CONTINUE TO MONITOR.
[2017-08-05] MEDS: LORAZEPAM 1 MG TABLET PO PRN (04:01)
[2017-08-05 07:30] VITALS: BP 99/51
[2017-08-05] MEDS: CARBAMAZEPINE 200 MG TABLET PO SCH ×2 (08:27→20:25)
[2017-08-05] MEDS: OMEGA-3 FATTY ACIDS/FISH OIL CAPSULE PO SCH ×2 (08:27→20:25)
[2017-08-05] MEDS: diphenhydrAMINE 25 MG CAP PO SCH (08:28)
[2017-08-05] MEDS: HALOPERIDOL LACTATE 10 MG/5 ML ORAL SOLUTION UDC PO SCH ×2 (08:28→20:25)
[2017-08-05] MEDS: NEOMY/BACITRAC/POLYMI OINT 28.35 GM TUBE TOP SCH (08:28)
[2017-08-05 16:04] VITALS: BP 138/63
[2017-08-05] MEDS: diphenhydrAMINE 50 MG CAPSULE PO SCH (20:25)
[2017-08-05] MEDS: ATORVASTATIN 20 MG TABLET PO SCH (20:25)
[2017-08-05 20:35] VITALS: BP 133/78
[2017-08-06] MEDS: ZOLPIDEM 5 MG TABLET PO PRN (00:14)
[2017-08-06 07:30] VITALS: BP 119/75
[2017-08-06] MEDS: diphenhydrAMINE 25 MG CAP PO SCH (08:24)
[2017-08-06] MEDS: OMEGA-3 FATTY ACIDS/FISH OIL CAPSULE PO SCH (08:24)
[2017-08-06] MEDS: HALOPERIDOL LACTATE 10 MG/5 ML ORAL SOLUTION UDC PO SCH (08:24)
[2017-08-06] MEDS: CARBAMAZEPINE 200 MG TABLET PO SCH (08:24)
[2017-08-06] MEDS: NEOMY/BACITRAC/POLYMI OINT 28.35 GM TUBE TOP SCH (08:25)
--- NOTE | 2017-08-06 09:31 | NUR ---
DC Note: Patient will be discharged home with her [[address] [place] [address]; [phone]] via private transportation. SW spoke to patient's Nan [[phone]] who stated he will cotton picker operator patient around 12pm. Patient is alert and oriented x3 and is aware and agreeable to discharge plans. Patient denies SI and HI. Patient will follow up with her tube bender hand Dr. Pedersen [[address], [place] [address]; ] and psychiatrist Dr. Rodríguez [[address] [place] [address]; ]. Patient was provided additional mental health resources to the National Suicide Prevention Lifeline and the [facility] Crisis Line .
[2017-08-06] MEDS: LORAZEPAM 1 MG TABLET PO PRN (11:14)
--- NOTE | 2017-08-06 11:32 | NUR ---
GPS: Nursing Notes: Refusing for Picture To Be Taken: Patient refusing for picture to be taken, poor impulse control, stated "I am busy praying...", continue with treatment plan.
--- NOTE | 2017-08-06 12:45 | NUR ---
GPS: Nursing Notes: Discharge Notes: Patient is awake and responding to her name, needs prompting to be compliant with nursing care, argumentative at times, left foot 3rd digit toe healed, no s/s of any infection noted, poor impulse control, did not allow for staff to take a picture, denies any SI/HI, denies any AH/VH, denies any pain or discomfort, denies any SOB, discharge home with her [Nan ] at [address] [place] [address] , prescription and instructions given to the in order for him to follow up with patient's own psychiatrist and hand decorator as soon as possible, took all her belongings with her, transported home via private vehicle with .
== END 2017-08-06 12:45 | disposition home or self-care (01) | DRG 885 ==
LOC: ER 13:29 → GPS 15:01
PROVIDERS: ADMIT Psychiatry & Neurology Psychiatry; ATTEND Internal Medicine
DX: F31.2 Bipolar disorder, current episode manic severe with psychotic features (principal); F03.90 Unspecified dementia, unspecified severity, without behavioral disturbance, psychotic disturbance, mood disturbance, and anxiety; D75.89 Other specified diseases of blood and blood-forming organs; E02 Subclinical iodine-deficiency hypothyroidism; T79.9XXA Unspecified early complication of trauma, initial encounter; E66.9 Obesity, unspecified; T25.032A Burn of unspecified degree of left toe(s) (nail), initial encounter; E78.5 Hyperlipidemia, unspecified; F41.9 Anxiety disorder, unspecified; Z79.899 Other long term (current) drug therapy; Z90.710 Acquired absence of both cervix and uterus; Z96.651 Presence of right artificial knee joint; Z68.30 Body mass index [BMI] 30.0-30.9, adult; M19.90 Unspecified osteoarthritis, unspecified site
CPT/HCPCS: 36415; 70450; 71045; 83735; 84100; 84443; 84481; 85025; 93005; A4663; J1200; J1630; Q0163

== ENCOUNTER 2017-09-29 18:20 | Inpatient (IN) | payer MEDICARE, BC ==
[~2017-09-29] VITALS: Ht 154.9 cm; Wt 75.7 kg
[~2017-09-29 18:20] MED LIST: ARIP30TA3 PO; CARB200T PO; LAMO200T PO
--- NOTE | 2017-09-29 18:28 | NUR ---
PATIENT BROUGHT IN VIA AMBULANCE. PATIENT IS FROM [facility]. NEEDS PSYCH CLEARANCE.
--- NOTE | 2017-09-29 18:29 | NUR ---
PATIENT WAITING TO BE SEEN BY ER PHYSICIAN.
--- NOTE | 2017-09-29 18:29 | NUR ---
PATIENT TAKEN TO BATHROOM. URINE COLLECTED AND SENT TO LAB.
[2017-09-29] MEDS ORDERED: PANT40TA4 PO (18:56)
[2017-09-29] MEDS ORDERED: ACET-73 PO ×2 (18:56)
[2017-09-29] MEDS ORDERED: ACET-2154 PO ×2 (18:56→19:13)
[2017-09-29] MEDS ORDERED: SENN-167 PO (18:56)
--- NOTE | 2017-09-29 19:00 | NUR ---
PATIENT IN ROOM A/OX3 WITH NO DISTRESS NOTED. PATIENT ON 5150 HOLD FOR DTS. DENIES SI,AUDITORY OR VISUAL HALLUCINATION AT THIS TIME
--- NOTE | 2017-09-29 19:03 | NUR ---
REPORT GIVEN TO ZIYAD.
[2017-09-29] MEDS ORDERED: DIVA250T4 PO (19:13)
[2017-09-29] MEDS ORDERED: CRAN450T9 PO (19:13)
[2017-09-29] MEDS ORDERED: ASCO500C18 PO (19:13)
[2017-09-29] MEDS ORDERED: DOCU100C36 PO (19:13)
--- NOTE | 2017-09-29 19:27 | NUR ---
MRSA SERVILLANCE OBTAIN AND SENT TO LAB. BELONGING LIST COMPLETED
[2017-09-29 19:48] LABS: CARBON DIOXIDE 30 mmol/L (21-32); CHLORIDE 106 mmol/L (98-107); CREATININE 0.8 mg/dL (0.6-1.3); GLUCOSE 101 mg/dL (74-106); POTASSIUM 4.1 mmol/L (3.5-5.1); UREA NITROGEN, BLOOD 16 mg/dL (7-18)
[2017-09-29 19:49] LABS: ETHANOL < 3 MG/DL (0-0)
[2017-09-29 19:50] LABS: BASOPHILS % (AUTO) 0.6 % (0.0-2.0); EOSINOPHILS # (AUTO) 0.1 K/uL (0.0-0.7); EOSINOPHILS % (AUTO) 0.8 % (0.0-7.0); HEMATOCRIT 38.3 % (31.2-41.9); HEMOGLOBIN 12.9 g/dL (10.9-14.3); LYMPHOCYTES # (AUTO) 1.9 K/uL (20.0-40.0); LYMPHOCYTES % (AUTO) 29.6 % (20.5-51.5); MEAN CORPUSCULAR HEMOGLOBIN 33.4 uug (24.7-32.8); MEAN CORPUSCULAR HGB CONC 34 g/dL (32.3-35.6); MEAN CORPUSCULAR VOLUME 99.1 fL (75.5-95.3); MONOCYTES # (AUTO) 0.6 K/uL (2.0-10.0); MONOCYTES % (AUTO) 9.7 % (0.0-11.0); NEUTROPHILS # (AUTO) 3.8 K/uL (1.8-8.9); NEUTROPHILS % (AUTO) 59.3 % (38.5-71.5); PLATELET COUNT (AUTO) 160 K/uL (179-408); RED BLOOD CELL COUNT(AUTO) 3.87 MIL/uL (3.63-4.92); WHITE BLOOD COUNT (AUTO) 6.4 K/uL (3.8-11.8)
[2017-09-29 19:51] LABS: *AMPHETAMINE, URINE NEGATIVE (NEGATIVE); *BARBITURATE, URINE NEGATIVE (NEGATIVE); *CANNABINOID, URINE NEGATIVE (NEGATIVE); *COCCAINE, URINE NEGATIVE (NEGATIVE); *OPIATE, URINE NEGATIVE (NEGATIVE); *PHENCYCLIDINE SCREEN,URINE NEGATIVE (NEGATIVE)
[2017-09-29 19:54] LABS: *BILIRUBIN,URIN NEGATIVE (NEGATIVE); *BLOOD, URINE Trace-intact (NEGATIVE); *CLARITY,URINE SLIGHTLY CLOUDY (CLEAR); *COLOR,URINE YELLOW (YELLOW); *KETONES,URINE 1+ (NEGATIVE); *PROTEIN,URINE TRACE (NEGATIVE); *UROBILINOGEN,URINE 0.2 E.U./dl (NORMAL); LEUKOCYTE ESTERASE ,URINE TRACE (NEGATIVE); NITRITE, URINE NEGATIVE (NEGATIVE); UGLUCOSE NEGATIVE (NEGATIVE)
[2017-09-29 19:55] LABS: BACTERIA,URINE FEW /HPF (NONE SEEN); RBC,URINE 0-3 /HPF (0-3); SQUAMOUS EPITHELIAL CELL,UR MODERATE /HPF (NONE SEEN)
[2017-09-29 20:03] LABS: ALANINE AMINOTRANSFERASE 30 U/L (14-59); ALKALINE PHOSPHATASE 77 U/L (50-136); ASPARTATE AMINOTRANSFERASE 16 U/L (15-37); BILIRUBIN,DIRECT 0.2 mg/dL (0.0-0.2); BILIRUBIN,TOTAL 0.8 mg/dL (0.2-1.0); TOTAL PROTEIN, SERUM 7.1 g/dL (6.4-8.2)
[2017-09-29 20:13] LABS: ACETAMINOPHEN < 2.0 ug/mL (10-30)
--- NOTE | 2017-09-29 20:33 | NUR ---
MEDICALLY CLEARED BY DR CLEMENT
--- NOTE | 2017-09-29 20:45 | NUR ---
Transfered to [facility] via gurny with no distress noted
[2017-09-29] MEDS ORDERED: MAGNESIUM HYDROXIDE 30 ML LIQUID UDC PO PRN (21:15)
[2017-09-29] MEDS ORDERED: MAG HYDROX/AL HYDROX/SIMETH 30 ML LIQUID UDC PO PRN (21:15)
[2017-09-29] MEDS ORDERED: TEMAZEPAM 7.5 MG CAPSULE PO PRN (21:15)
[2017-09-29 21:31] VITALS: BP 113/69
--- NOTE | 2017-09-29 21:56 | NUR ---
2054--Received patient from ER via gurney with no s/sx of distress and no complaints of pain. Per records and ER endorsement, pt is from [facility] and was brought in for SI and possible auditory hallucinations. However, upon admission at [facility] ER, pt denied everything but was aware that she was on 5150. At U, pt refused to answer questions and sign any papers, but agreed to a body check in her room. A/O x 3. VS taken and were WNL. Skin is clear and intact, respirations even and unlabored. No complaints of pain at this time but requested for a sleeping pill. Restoril administered per MD order. Pt requested for a snack before going to bed. Comfort and safety measures in place. Will continue to monitor.
[2017-09-29] MEDS ORDERED: ACETAMINOPHEN ES 500 MG TABLET PO SCH (22:00)
[2017-09-29] MEDS ORDERED: ACETAMINOPHEN ES 500 MG TABLET PO PRN (22:00)
--- NOTE | 2017-09-29 22:24 | NUR ---
Med recon done by IFEOMA Taylor.
[2017-09-30] MEDS: LORAZEPAM 1 MG TABLET PO PRN (03:02)
[2017-09-30] MEDS: PANTOPRAZOLE SODIUM 40 MG TABLET.DR PO SCH (06:30)
[2017-09-30 07:15] LABS: THYROID STIMULATING HORMONE 2.396 mIU/mL (0.358-3.740)
[2017-09-30 07:30] VITALS: BP 122/71
[2017-09-30] MEDS: SULFAMETH/TRIMETH 800/160 MG TABLET PO SCH ×2 (08:48→20:36)
[2017-09-30] MEDS: DOCUSATE SODIUM 100 MG CAPSULE PO SCH ×2 (08:48→17:00)
[2017-09-30] MEDS: ASCORBIC ACID 500 MG TABLET PO SCH (08:48)
[2017-09-30] MEDS ORDERED: Medication Not On Formulary EA (Cranberry Fruit (Cranberry) 450 MG) PO SCH (09:00)
[2017-09-30] MEDS ORDERED: DIVALPROEX 250 MG TABLET.DR PO SCH (09:00)
[2017-09-30] MEDS ORDERED: Medication Not On Formulary EA (Ascorbic Acid (Vitamin C) 500 MG) PO SCH (09:00)
[2017-09-30] MEDS: DIVALPROEX 250 MG TABLET.DR PO SCH (17:09)
[2017-09-30 17:10] VITALS: BP 123/68
[2017-09-30] MEDS ORDERED: Medication Not On Formulary EA (Aripiprazole (Abilify) 15 MG) PO SCH (18:00)
[2017-09-30 19:54] VITALS: BP 119/67
[2017-09-30] MEDS: ARIPIPRAZOLE 10 MG TABLET PO SCH (20:36)
[2017-09-30] MEDS: SENNOSIDES 1 TABLET PO SCH (20:36)
[2017-09-30] MEDS: ZOLPIDEM 5 MG TABLET PO PRN (22:51)
[2017-10-01] MEDS: PANTOPRAZOLE SODIUM 40 MG TABLET.DR PO SCH (06:37)
[2017-10-01 07:30] VITALS: BP 118/63
[2017-10-01] MEDS: DIVALPROEX 250 MG TABLET.DR PO SCH ×3 (08:06→16:21)
[2017-10-01] MEDS: ASCORBIC ACID 500 MG TABLET PO SCH (08:06)
[2017-10-01] MEDS: SULFAMETH/TRIMETH 800/160 MG TABLET PO SCH ×2 (08:06→20:13)
[2017-10-01] MEDS: DOCUSATE SODIUM 100 MG CAPSULE PO SCH ×3 (08:06→16:26)
[2017-10-01] MEDS: LORAZEPAM 1 MG TABLET PO PRN (12:24)
[2017-10-01 15:44] VITALS: BP 118/60
--- NOTE | 2017-10-01 16:27 | NUR ---
Patient refused Colace claims she does not need it. Discussed risks and benefits, patient still refused.
[2017-10-01] MEDS: SENNOSIDES 1 TABLET PO SCH (20:13)
[2017-10-01] MEDS: ARIPIPRAZOLE 10 MG TABLET PO SCH (20:13)
[2017-10-01 20:38] VITALS: BP 120/62
[2017-10-01] MEDS: ZOLPIDEM 5 MG TABLET PO PRN (23:30)
[2017-10-02] MEDS: PANTOPRAZOLE SODIUM 40 MG TABLET.DR PO SCH (06:39)
[2017-10-02 07:30] VITALS: BP 120/74
[2017-10-02] MEDS: SULFAMETH/TRIMETH 800/160 MG TABLET PO SCH ×2 (08:27→21:13)
[2017-10-02] MEDS: DIVALPROEX 250 MG TABLET.DR PO SCH ×3 (08:27→17:48)
[2017-10-02] MEDS: ASCORBIC ACID 500 MG TABLET PO SCH (08:27)
[2017-10-02] MEDS: DOCUSATE SODIUM 100 MG CAPSULE PO SCH ×2 (08:27→17:47)
--- NOTE | 2017-10-02 14:14 | NUR ---
Initial DC Plan: Patient currently resides at [facility] [[address] [place] [address]; ]. BERTHA spoke with CJ at [facility] who confirmed they can accept patient back when ready. BERTHA will follow up with MD, patient, and patient's Anthony [[phone]] to discuss most appropriate discharge plans. SW will form a safe and proper discharge.
[2017-10-02 15:46] VITALS: BP 117/74
[2017-10-02] MEDS: LORAZEPAM 1 MG TABLET PO PRN (20:22)
[2017-10-02 20:29] VITALS: BP 141/75
[2017-10-02] MEDS: SENNOSIDES 1 TABLET PO SCH (21:13)
[2017-10-02] MEDS: ARIPIPRAZOLE 10 MG TABLET PO SCH (21:13)
--- NOTE | 2017-10-02 22:00 | NUR ---
received to care, lying in bed, isolative, but pleasant upon approach. compliant with medications and staff direction. PRN ativan given at 2021, for anxiety, which was effective, per patient. as of 2199, she appears to be asleep. no distress noted. will continue to monitor closely.
[2017-10-03] MEDS: LORAZEPAM 1 MG TABLET PO PRN (02:42)
--- NOTE | 2017-10-03 02:42 | NUR ---
PT IS NOW AWAKE. C/O ANXIETY. prn ATIVAN WAS GIVEN. WILL CONTINUE TO MONITOR CLOSELY.
--- NOTE | 2017-10-03 06:00 | NUR ---
slept 6.5 hours, total.
[2017-10-03] MEDS: PANTOPRAZOLE SODIUM 40 MG TABLET.DR PO SCH (06:23)
[2017-10-03 08:00] VITALS: BP 123/76
[2017-10-03] MEDS: DOCUSATE SODIUM 100 MG CAPSULE PO SCH ×2 (08:10→17:32)
[2017-10-03] MEDS: SULFAMETH/TRIMETH 800/160 MG TABLET PO SCH ×2 (08:10→20:38)
[2017-10-03] MEDS: ASCORBIC ACID 500 MG TABLET PO SCH (08:10)
[2017-10-03] MEDS: DIVALPROEX 250 MG TABLET.DR PO SCH ×3 (08:10→17:32)
[2017-10-03 16:00] VITALS: BP 96/64
[2017-10-03] MEDS: ARIPIPRAZOLE 10 MG TABLET PO SCH (20:38)
[2017-10-03] MEDS: SENNOSIDES 1 TABLET PO SCH (20:38)
[2017-10-03] MEDS: ZOLPIDEM 5 MG TABLET PO PRN (21:57)
--- NOTE | 2017-10-03 22:00 | NUR ---
received to care, lying in bed, isolative, but calm, and pleasant upon approach. compliant with medications and staff direction. PRN mary was given for insomnia, at 2156. as of 2199, she remains awake, in bed. no distress noted. will continue to monitor closely.
--- NOTE | 2017-10-03 22:40 | NUR ---
appears to be asleep. no distress noted.
[2017-10-04] MEDS: LORAZEPAM 1 MG TABLET PO PRN ×2 (03:06→15:01)
--- NOTE | 2017-10-04 03:06 | NUR ---
pt is now awake. c/o anxiety. PRN ativan was given, and she went back to bed. will continue to monitor closely.
--- NOTE | 2017-10-04 06:00 | NUR ---
slept 6.5 hours.
[2017-10-04] MEDS: PANTOPRAZOLE SODIUM 40 MG TABLET.DR PO SCH (06:02)
[2017-10-04 07:30] VITALS: BP 116/69
[2017-10-04] MEDS: ASCORBIC ACID 500 MG TABLET PO SCH (08:44)
[2017-10-04] MEDS: SULFAMETH/TRIMETH 800/160 MG TABLET PO SCH ×2 (08:44→20:10)
[2017-10-04] MEDS: DIVALPROEX 250 MG TABLET.DR PO SCH ×3 (08:44→17:53)
[2017-10-04] MEDS: DOCUSATE SODIUM 100 MG CAPSULE PO SCH ×2 (08:46→17:53)
[2017-10-04 15:00] VITALS: BP 125/84
[2017-10-04] MEDS: ARIPIPRAZOLE 10 MG TABLET PO SCH (20:09)
[2017-10-04] MEDS: SENNOSIDES 1 TABLET PO SCH (20:10)
[2017-10-04] MEDS: ZOLPIDEM 5 MG TABLET PO PRN (21:46)
--- NOTE | 2017-10-04 22:00 | NUR ---
received to care, lying in bed, isolative, but calm, and pleasant upon approach. compliant with medications and staff direction. PRN mary was given for insomnia, at 2145. as of 2199, she remains awake, in bed. no distress noted. will continue to monitor closely.
--- NOTE | 2017-10-04 22:30 | NUR ---
appears to be asleep. no distress noted.
[2017-10-05] MEDS: LORAZEPAM 1 MG TABLET PO PRN ×2 (00:29→06:51)
--- NOTE | 2017-10-05 00:29 | NUR ---
PRN ativan given for anxiety
[2017-10-05] MEDS: PANTOPRAZOLE SODIUM 40 MG TABLET.DR PO SCH (06:00)
--- NOTE | 2017-10-05 06:52 | NUR ---
slept 6.5 hours. PRN ATIVAN GIVEN FOR ANXIETY
[2017-10-05 07:30] VITALS: BP 107/71
[2017-10-05] MEDS: DOCUSATE SODIUM 100 MG CAPSULE PO SCH ×2 (08:16→16:45)
[2017-10-05] MEDS: DIVALPROEX 250 MG TABLET.DR PO SCH ×3 (08:16→16:45)
[2017-10-05] MEDS: ASCORBIC ACID 500 MG TABLET PO SCH (08:16)
[2017-10-05] MEDS: SULFAMETH/TRIMETH 800/160 MG TABLET PO SCH ×2 (08:16→20:41)
[2017-10-05 16:32] VITALS: BP 114/64
--- NOTE | 2017-10-05 19:35 | NUR ---
RECEIVED PATIENT IN THE HALLWAY, SHE IS NOTED CALM AND COOPERATIVE, A/O X 2. SHE IS ABLE TO AMBULATE WITH STEADY GAIT AND ABLE TO MAKE HER NEEDS KNOWN. PATIENT IS NOTED WITH LOW MOOD, BLUNTED AFFECT, FAIR INSIGHT AND JUDGMENT TO THE REASON FOR HER ADMISSION. PATIENT CONTINUE COMPLIANT WITH HER MEDICATION REGIMENT, DIET AND PLAN OF CARE.
[2017-10-05 20:35] VITALS: BP 99/70
[2017-10-05] MEDS: SENNOSIDES 1 TABLET PO SCH (20:41)
[2017-10-05] MEDS: ARIPIPRAZOLE 10 MG TABLET PO SCH (20:41)
[2017-10-05] MEDS: ZOLPIDEM 5 MG TABLET PO PRN (22:16)
--- NOTE | 2017-10-05 22:20 | NUR ---
PATIENT APPROACHED THE NURSING STATION, SHE REQUESTED A "SLEEPING PILLS". AMBIEN 10MG PO PRN WAS GIVEN FOR INSOMNIA PER PATIENT REQUESTS AND NURSING ASSESSMENT. SAFETY WAS EMPHASIS, WILL CONTINUE TO MONITOR.
[2017-10-06] MEDS: PANTOPRAZOLE SODIUM 40 MG TABLET.DR PO SCH (06:39)
[2017-10-06 07:30] VITALS: BP 119/76
[2017-10-06] MEDS: DOCUSATE SODIUM 100 MG CAPSULE PO SCH ×2 (08:04→17:07)
[2017-10-06] MEDS: ASCORBIC ACID 500 MG TABLET PO SCH (08:04)
[2017-10-06] MEDS: DIVALPROEX 250 MG TABLET.DR PO SCH ×2 (08:04→17:07)
[2017-10-06] MEDS: ESCITALOPRAM OXALATE 10 MG TABLET PO SCH (11:36)
[2017-10-06 15:39] VITALS: BP 110/70
--- NOTE | 2017-10-06 19:40 | NUR ---
RECEIVED PATIENT IN HER ROOM, SHE IS NOTED AWAKE, A/O X 2. SHE IS ABLE TO AMBULATE WITH STEADY GAIT AND ABLE TO MAKE HER NEEDS KNOWN. CONTINUE WITH LOW MOOD, WITHDRAWN TO HER ROOM, ISOLATED, BLUNTED AFFECT. UPON INTERVIEW, SHE STATED, "I STILL FEELS SAD". "NO, I JUST WANT TO STAY HERE IN MY ROOM". PATIENT DENIES SI/HI/VH/AH AT THIS TIME. FAIR INSIGHT AND JUDGMENT NOTED TO THE REASON FOR HER ADMISSION TO [facility]. PATIENT CONTINUE COMPLIANT WITH HER MEDICATION REGIMENT, DIET AND PLAN OF CARE. SAFETY WAS EMPHASIS. WILL CONTINUE TO MONITOR.
[2017-10-06 20:30] VITALS: BP 105/64
[2017-10-06] MEDS: SENNOSIDES 1 TABLET PO SCH (20:30)
[2017-10-06] MEDS: ARIPIPRAZOLE 10 MG TABLET PO SCH (20:30)
[2017-10-06] MEDS: ZOLPIDEM 5 MG TABLET PO PRN (22:07)
[2017-10-07] MEDS: PANTOPRAZOLE SODIUM 40 MG TABLET.DR PO SCH (06:38)
--- NOTE | 2017-10-07 06:44 | NUR ---
PATIENT SLEPT FOR APPROX 9.00 HR THROUGH THE NIGHT
[2017-10-07 07:30] VITALS: BP 117/72
[2017-10-07 07:33] LABS: BASOPHILS % (AUTO) 1.1 % (0.0-2.0); EOSINOPHILS # (AUTO) 0.2 K/uL (0.0-0.7); EOSINOPHILS % (AUTO) 4.4 % (0.0-7.0); HEMATOCRIT 37.3 % (31.2-41.9); HEMOGLOBIN 12.9 g/dL (10.9-14.3); LYMPHOCYTES # (AUTO) 1.6 K/uL (20.0-40.0); MEAN CORPUSCULAR HEMOGLOBIN 33.9 uug (24.7-32.8); MEAN CORPUSCULAR HGB CONC 35 g/dL (32.3-35.6); MEAN CORPUSCULAR VOLUME 98.3 fL (75.5-95.3); MONOCYTES # (AUTO) 0.6 K/uL (2.0-10.0); MONOCYTES % (AUTO) 16.9 % (0.0-11.0); NEUTROPHILS # (AUTO) 1.3 K/uL (1.8-8.9); NEUTROPHILS % (AUTO) 34.6 % (38.5-71.5); PLATELET COUNT (AUTO) 132 K/uL (179-408); RED BLOOD CELL COUNT(AUTO) 3.79 MIL/uL (3.63-4.92); WHITE BLOOD COUNT (AUTO) 3.8 K/uL (3.8-11.8)
[2017-10-07 08:09] LABS: BILIRUBIN,TOTAL 0.4 mg/dL (0.2-1.0); CREATININE 1.1 mg/dL (0.6-1.3); MAGNESIUM 2.3 mg/dL (1.8-2.4); PHOSPHOROUS 4.8 mg/dL (2.5-4.9); POTASSIUM 4.3 mmol/L (3.5-5.1); TOTAL PROTEIN, SERUM 6.3 g/dL (6.4-8.2)
[2017-10-07] MEDS: ASCORBIC ACID 500 MG TABLET PO SCH (08:19)
[2017-10-07] MEDS: ESCITALOPRAM OXALATE 10 MG TABLET PO SCH (08:19)
[2017-10-07] MEDS: DIVALPROEX 250 MG TABLET.DR PO SCH ×2 (08:19→17:05)
[2017-10-07] MEDS: DOCUSATE SODIUM 100 MG CAPSULE PO SCH ×2 (08:22→17:00)
[2017-10-07 08:51] LABS: BAND % (MANUAL) 0 % (0-10); BASOPHILS % (MANUAL) 0 % (0-2); EOSINOPHILS % (MANUAL) 6 % (0-8); LYMPHOCYTES % (MANUAL) 35 % (20-40); MONOCYTES % (MANUAL) 12 % (2-10); NEUTROPHILS % (MANUAL) 47 % (42-75)
[2017-10-07 17:14] VITALS: BP 111/56
[2017-10-07 19:30] VITALS: BP 105/71
[2017-10-07] MEDS: SENNOSIDES 1 TABLET PO SCH (20:36)
[2017-10-07] MEDS: ARIPIPRAZOLE 10 MG TABLET PO SCH (20:36)
--- NOTE | 2017-10-07 22:00 | NUR ---
received to care, lying in bed, isolative, but calm, and pleasant upon approach. interacts minimally, when engaged. denies SI, or desire to harm self. remains compliant with medications and staff direction. as of 2199, she appears to be asleep. no distress noted. will continue to monitor closely.
--- NOTE | 2017-10-08 06:00 | NUR ---
slept 9 hours total. assisted with am care, and shower. no distress noted.
[2017-10-08] MEDS: PANTOPRAZOLE SODIUM 40 MG TABLET.DR PO SCH (06:29)
[2017-10-08 07:30] VITALS: BP 110/68
[2017-10-08] MEDS: ASCORBIC ACID 500 MG TABLET PO SCH (08:14)
[2017-10-08] MEDS: ESCITALOPRAM OXALATE 10 MG TABLET PO SCH (08:14)
[2017-10-08] MEDS: DIVALPROEX 250 MG TABLET.DR PO SCH (08:14)
[2017-10-08] MEDS: DOCUSATE SODIUM 100 MG CAPSULE PO SCH (08:17)
--- NOTE | 2017-10-08 10:56 | NUR ---
DC Note: Patient will be discharged back to [facility] [[address] [place] [address]; ] via ambulance. BERTHA spoke with CJ at [facility] who confirmed they can accept patient at the facility today. BERTHA spoke with patient's Nan [[phone]] who is aware and agreeable to discharge plans. Patient is aware and agreeable to discharge plans. Patient will follow up with Dr. Duarte (Psychiatrist) and Dr. Duncan ([employer]) at the facility.
[2017-10-08 15:37] VITALS: BP 107/68
--- NOTE | 2017-10-08 15:58 | NUR ---
1200 Called report to [facility] regarding patient will be discharged back to their facility- spoke with LIO Mcgarry who will admit this patient. Nurse informed regarding patient mental and medical condition, medications to continue upon discharged, ppatient behavior, diagnosis and doctor who will take care of the patient at their facility- nurse verbalized understanding. [id number] Patient picked up by ambulance in fair condition, alert and ox3. verbalized need. Denies SI/HI. No delusion. No hallucination noted.
== END 2017-10-08 15:45 | DRG 885 ==
LOC: ER 18:21 → GPS 20:40
PROVIDERS: ADMIT Psychiatry & Neurology Psychiatry; ATTEND Registered Nurse
DX: F25.9 Schizoaffective disorder, unspecified (principal); N39.0 Urinary tract infection, site not specified; E66.9 Obesity, unspecified; Z71.3 Dietary counseling and surveillance; Z68.32 Body mass index [BMI] 32.0-32.9, adult; Z79.899 Other long term (current) drug therapy; Z96.651 Presence of right artificial knee joint; Z91.5 Personal history of self-harm; M19.90 Unspecified osteoarthritis, unspecified site; E78.5 Hyperlipidemia, unspecified; D75.89 Other specified diseases of blood and blood-forming organs; D69.6 Thrombocytopenia, unspecified; F31.9 Bipolar disorder, unspecified
CPT/HCPCS: 36415; 71045; 80164; 80307; 83605; 83735; 84100; 84443; 85025; 87040; 87086; 93005; A4663; G0480; G0480-TC; J3490

== ENCOUNTER 2024-07-03 19:30 | Inpatient (IN) | payer MEDICARE, BC ==
[~2024-07-03] VITALS: Ht 165.1 cm; Wt 66.2 kg
[~2024-07-03 19:30] MED LIST changes: +ACET-2154 PO; +ACET-73 PO; -ARIP30TA3 PO; +ASCO500C18 PO; -CARB200T PO; +CRAN450T9 PO; +DOCU100C36 PO; -LAMO200T PO; +PANT40TA49 PO; +SENN-261 PO
[2024-07-03] MEDS ORDERED: QUETIAPINE FUMARATE 25 MG TABLET PO PRN (21:15)
[2024-07-03] MEDS ORDERED: MAGNESIUM HYDROXIDE 30 ML LIQUID UDC PO PRN (21:15)
[2024-07-03] MEDS ORDERED: MAG HYDROX/AL HYDROX/SIMETH 30 ML LIQUID UDC PO PRN (21:15)
[2024-07-03] MEDS: BLOOD SUGAR DIAGNOSTIC 1 EACH STRIP VI ONE (21:30)
[2024-07-03] MEDS: ZOLPIDEM 5 MG TABLET PO PRN (22:23)
[2024-07-03] MEDS: ACETAMINOPHEN 325 MG TABLET PO PRN (22:23)
[2024-07-03 22:34] VITALS: BP 153/63; TEMP 98.1; O2SAT 97
[2024-07-03] MEDS ORDERED: LITH150C PO (23:11)
[2024-07-03] MEDS ORDERED: MELA5TAB20 PO (23:11)
[2024-07-03] MEDS ORDERED: LAMO200T2 PO (23:11)
[2024-07-04 07:26] LABS: BASOPHILS % (AUTO) 0.6 % (0.0-2.0); EOSINOPHILS % (AUTO) 0.1 % (0.0-7.0); HEMATOCRIT 36.6 % (31.2-41.9); HEMOGLOBIN 12.3 g/dL (10.9-14.3); LYMPHOCYTES # (AUTO) 2.1 K/uL (0.8-4.8); LYMPHOCYTES % (AUTO) 35.3 % (20.5-51.5); MEAN CORPUSCULAR HEMOGLOBIN 32.4 uug (24.7-32.8); MEAN CORPUSCULAR HGB CONC 34 g/dL (32.3-35.6); MEAN CORPUSCULAR VOLUME 96.3 fL (75.5-95.3); MONOCYTES # (AUTO) 0.5 K/uL (0.1-1.30); MONOCYTES % (AUTO) 8.5 % (0.0-11.0); NEUTROPHILS # (AUTO) 3.4 K/uL (1.8-8.9); NEUTROPHILS % (AUTO) 55.5 % (38.5-71.5); PLATELET COUNT (AUTO) 173 K/uL (179-408); RED CELL DISTRIBUTION WIDTH 13.4 % (12.3-17.7); WHITE BLOOD COUNT (AUTO) 6.1 K/uL (3.8-11.8)
[2024-07-04 07:29] LABS: DIFFERENTIAL COMMENT 1
[2024-07-04 07:38] LABS: CARBON DIOXIDE 24 mmol/L (21-32); CHLORIDE 109 mmol/L (98-107); GLUCOSE 83 mg/dL (74-106); POTASSIUM 4.3 mmol/L (3.5-5.1); SODIUM SERUM 141 mmol/L (136-145)
[2024-07-04 07:39] LABS: ALANINE AMINOTRANSFERASE 27 U/L (14-59); ALBUMIN 3.7 g/dL (3.4-5.0); ALKALINE PHOSPHATASE 82 U/L (50-136); ASPARTATE AMINOTRANSFERASE 20 U/L (15-37); BILIRUBIN,TOTAL 0.5 mg/dL (0.2-1.0); CALCIUM 9.1 mg/dL (8.5-10.1); CHOLESTEROL 186 mg/dL (<200); HDL CHOLESTEROL 96 mg/dL (40-60); TOTAL PROTEIN, SERUM 6.5 g/dL (6.4-8.2); TRIGLYCERIDES 80 MG/DL (30-150); UREA NITROGEN, BLOOD 15 mg/dL (7-18)
[2024-07-04 08:00] VITALS: BP 125/75; TEMP 98; O2SAT 99
[2024-07-04] MEDS ORDERED: FAMO20TA8 PO (10:27)
[2024-07-04 15:42] VITALS: BP 123/80; TEMP 98; O2SAT 99
[2024-07-04] MEDS: DIVALPROEX 125 MG TABLET.DR PO SCH (16:17)
[2024-07-04] MEDS: BENZTROPINE MESYLATE 0.5 MG TABLET PO SCH (16:18)
[2024-07-04 21:08] VITALS: BP 136/71; TEMP 97.5; O2SAT 100
[2024-07-04] MEDS: risperiDONE 0.25 MG TABLET PO SCH (21:10)
[2024-07-05] MEDS: ZOLPIDEM 5 MG TABLET PO PRN (00:36)
[2024-07-05] MEDS: DOCUSATE SODIUM 100 MG CAPSULE PO SCH (08:21)
[2024-07-05] MEDS: FAMOTIDINE 20 MG TABLET PO SCH (08:22)
[2024-07-05 08:24] VITALS: BP 102/72; TEMP 98.5; O2SAT 96
[2024-07-05 21:29] VITALS: BP 134/89; TEMP 98; O2SAT 98
[2024-07-06 08:19] VITALS: BP 135/81; TEMP 98; O2SAT 100
[2024-07-06 16:21] VITALS: BP 132/66; TEMP 98; O2SAT 100
[2024-07-06 19:49] VITALS: BP 109/71; TEMP 98; O2SAT 98
[2024-07-06] MEDS: risperiDONE 0.5 MG TABLET PO SCH (20:07)
[2024-07-06] MEDS ORDERED: risperiDONE 0.25 MG TABLET PO SCH (21:00)
[2024-07-07 07:32] LABS: BASOPHILS % (AUTO) 0.8 % (0.0-2.0); HEMATOCRIT 38.3 % (31.2-41.9); LYMPHOCYTES % (AUTO) 33.7 % (20.5-51.5); MEAN CORPUSCULAR HEMOGLOBIN 32.5 uug (24.7-32.8); MEAN CORPUSCULAR HGB CONC 34 g/dL (32.3-35.6); MEAN CORPUSCULAR VOLUME 95.8 fL (75.5-95.3); MONOCYTES # (AUTO) 0.6 K/uL (0.1-1.30); MONOCYTES % (AUTO) 9.5 % (0.0-11.0); NEUTROPHILS # (AUTO) 3.3 K/uL (1.8-8.9); PLATELET COUNT (AUTO) 209 K/uL (179-408); RED BLOOD CELL COUNT(AUTO) 3.99 MIL/uL (3.63-4.92); RED CELL DISTRIBUTION WIDTH 13.5 % (12.3-17.7)
[2024-07-07 07:42] LABS: DIFFERENTIAL COMMENT 1
[2024-07-07 08:14] VITALS: BP 128/71; TEMP 98.1; O2SAT 99
[2024-07-07] MEDS: risperiDONE 0.25 MG TABLET PO SCH (08:34)
[2024-07-07] MEDS: DIVALPROEX 125 MG TABLET.DR PO SCH (13:24)
[2024-07-07 16:22] VITALS: BP 112/61; TEMP 98; O2SAT 98
[2024-07-07 19:44] VITALS: BP 127/64; TEMP 97.7; O2SAT 100
[2024-07-08 08:01] VITALS: BP 117/66; TEMP 98; O2SAT 96
[2024-07-08 16:02] VITALS: BP 139/79; TEMP 98; O2SAT 100
[2024-07-08 20:00] VITALS: BP 118/73; TEMP 98.1; O2SAT 98
[2024-07-08] MEDS: risperiDONE 0.5 MG TABLET PO SCH (20:55)
[2024-07-09 08:04] VITALS: BP 104/68; TEMP 98.2; O2SAT 99
[2024-07-09] MEDS: risperiDONE 0.25 MG TABLET PO SCH (08:51)
[2024-07-09] MEDS: BENZTROPINE MESYLATE 0.5 MG TABLET PO SCH (08:53)
[2024-07-09] MEDS: ENSURE WITH FIBER 237 ML LIQUID (CHOCOLATE) PO SCH (09:03)
[2024-07-09 15:26] VITALS: BP 110/69; TEMP 98; O2SAT 98
[2024-07-09] MEDS ORDERED: HALOPERIDOL LACTATE 5 MG/1 ML VIAL IM ONE (15:37)
[2024-07-09] MEDS: HALOPERIDOL LACTATE 5 MG/1 ML VIAL IM ONE (16:55)
[2024-07-09 20:00] VITALS: BP 114/73; TEMP 98.1; O2SAT 100
[2024-07-10 09:13] VITALS: BP 110/56; TEMP 97.7; O2SAT 98
[2024-07-10] MEDS: DIVALPROEX 125 MG TABLET.DR PO SCH (14:16)
[2024-07-10] MEDS: ZIPRASIDONE MESYLATE 20 MG VIAL IM ONE (16:09)
[2024-07-10 17:01] VITALS: BP 112/70; TEMP 98.2; O2SAT 99
[2024-07-10 19:54] VITALS: BP 126/70; TEMP 98.2; O2SAT 98
[2024-07-10] MEDS: risperiDONE 1 MG TABLET PO SCH (20:23)
[2024-07-10] MEDS ORDERED: risperiDONE 0.5 MG TABLET PO SCH (21:00)
[2024-07-10] MEDS: HALOPERIDOL LACTATE 5 MG/1 ML VIAL IM ONE (22:27)
[2024-07-11] MEDS ORDERED: MISCELLANEOUS MED XX PRN (07:00)
[2024-07-11] MEDS: risperiDONE 1 MG TABLET PO SCH (08:48)
[2024-07-11] MEDS: [UNRECOGNIZED DRUG - OTHER] PO SCH (08:49)
[2024-07-11] MEDS ORDERED: risperiDONE 0.25 MG TABLET PO SCH (09:00)
[2024-07-11 10:56] VITALS: BP 136/62; TEMP 98; O2SAT 98
[2024-07-11] MEDS: LORAZEPAM 0.5 MG TABLET PO ONE (13:35)
[2024-07-11 15:28] VITALS: BP 129/56; TEMP 98; O2SAT 98
[2024-07-11 19:41] VITALS: BP 133/59; TEMP 98.2; O2SAT 97
[2024-07-12 08:22] VITALS: BP 100/66; TEMP 98; O2SAT 98
[2024-07-12] MEDS: LORAZEPAM 1 MG TABLET PO ONE (13:15)
[2024-07-12] MEDS ORDERED: DIVALPROEX 250 MG TABLET.DR PO SCH (14:00)
[2024-07-12] MEDS: DIVALPROEX 125 MG TABLET.DR PO SCH (14:40)
[2024-07-12 15:00] VITALS: BP 115/76; TEMP 98; O2SAT 99
[2024-07-12 20:11] VITALS: BP 138/80; TEMP 98.6; O2SAT 98
[2024-07-12] MEDS: DIVALPROEX 500 MG TABLET.DR PO SCH (20:15)
[2024-07-13 08:14] VITALS: TEMP 97.8
[2024-07-13] MEDS ORDERED: hydrALAZINE HCL 25 MG TABLET PO PRN (11:15)
[2024-07-13 16:13] VITALS: TEMP 97.6
[2024-07-13 20:26] VITALS: BP 114/75; TEMP 98.5; O2SAT 98
[2024-07-14 08:14] VITALS: BP 111/74; TEMP 98.3; O2SAT 97
[2024-07-14 17:08] VITALS: TEMP 98.3
[2024-07-14] MEDS: HALOPERIDOL LACTATE 5 MG/1 ML VIAL IM STA (17:15)
[2024-07-14 19:43] VITALS: BP 147/70; TEMP 98.2; O2SAT 97
[2024-07-15 08:13] VITALS: BP 106/67; TEMP 98.2; O2SAT 98
[2024-07-15] MEDS: risperiDONE 1 MG TABLET PO SCH (08:32)
[2024-07-15 16:01] VITALS: BP 113/74; TEMP 98; O2SAT 98
[2024-07-15 20:00] VITALS: BP 127/81; TEMP 98.1; O2SAT 96
[2024-07-16 07:57] VITALS: BP 114/79; TEMP 98.4; O2SAT 99
[2024-07-16 15:35] VITALS: BP 106/72; TEMP 98; O2SAT 99
[2024-07-16 20:00] VITALS: BP 122/71; TEMP 98.1; O2SAT 98
[2024-07-17 08:11] LABS: BASOPHILS % (AUTO) 0.4 % (0.0-2.0); HEMATOCRIT 37.5 % (31.2-41.9); HEMOGLOBIN 12.3 g/dL (10.9-14.3); LYMPHOCYTES # (AUTO) 1.3 K/uL (0.8-4.8); LYMPHOCYTES % (AUTO) 28.7 % (20.5-51.5); MEAN CORPUSCULAR HGB CONC 33 g/dL (32.3-35.6); MEAN CORPUSCULAR VOLUME 97.1 fL (75.5-95.3); MONOCYTES # (AUTO) 0.5 K/uL (0.1-1.30); MONOCYTES % (AUTO) 10.1 % (0.0-11.0); NEUTROPHILS # (AUTO) 2.8 K/uL (1.8-8.9); NEUTROPHILS % (AUTO) 60.8 % (38.5-71.5); PLATELET COUNT (AUTO) 168 K/uL (179-408); RED BLOOD CELL COUNT(AUTO) 3.86 MIL/uL (3.63-4.92); RED CELL DISTRIBUTION WIDTH 13.6 % (12.3-17.7); WHITE BLOOD COUNT (AUTO) 4.6 K/uL (3.8-11.8)
[2024-07-17 08:14] VITALS: BP 146/68; TEMP 98; O2SAT 98
[2024-07-17 08:29] LABS: DIFFERENTIAL COMMENT 1
[2024-07-17 10:08] LABS: ALANINE AMINOTRANSFERASE 32 U/L (14-59); ALBUMIN 3.4 g/dL (3.4-5.0); ALKALINE PHOSPHATASE 117 U/L (50-136); ASPARTATE AMINOTRANSFERASE 24 U/L (15-37); BILIRUBIN,TOTAL 0.4 mg/dL (0.2-1.0); CALCIUM 9.2 mg/dL (8.5-10.1); CARBON DIOXIDE 26 mmol/L (21-32); CHLORIDE 112 mmol/L (98-107); CREATININE 0.9 mg/dL (0.6-1.3); GLUCOSE 78 mg/dL (74-106); MAGNESIUM 2.5 mg/dL (1.8-2.4); PHOSPHOROUS 3.6 mg/dL (2.5-4.9); POTASSIUM 3.9 mmol/L (3.5-5.1); SODIUM SERUM 149 mmol/L (136-145); TOTAL PROTEIN, SERUM 6.3 g/dL (6.4-8.2); UREA NITROGEN, BLOOD 21 mg/dL (7-18)
[2024-07-17 10:35] LABS: THYROID STIMULATING HORMONE 5.486 mIU/mL (0.358-3.740)
== END 2024-07-17 11:45 | DRG 885 ==
LOC: ER 19:30 → GPS 20:45
PROVIDERS: ADMIT Psychiatry & Neurology Psychiatry; ATTEND Internal Medicine
DX: F39 Unspecified mood [affective] disorder (principal); F31.9 Bipolar disorder, unspecified; F25.9 Schizoaffective disorder, unspecified; G47.00 Insomnia, unspecified; Z87.440 Personal history of urinary (tract) infections; Z96.651 Presence of right artificial knee joint; Z86.39 Personal history of other endocrine, nutritional and metabolic disease; Z91.410 Personal history of adult physical and sexual abuse; Z90.710 Acquired absence of both cervix and uterus; Z79.899 Other long term (current) drug therapy; Z62.810 Personal history of physical and sexual abuse in childhood; F41.9 Anxiety disorder, unspecified; M15.9 Polyosteoarthritis, unspecified; R41.89 Other symptoms and signs involving cognitive functions and awareness; R47.1 Dysarthria and anarthria
CPT/HCPCS: 36415; 80164; 83735; 84100; 84443; 85025; J1630; J3486